=== PATIENT | male | born 1980 | race Caucasian/White ===

== ENCOUNTER → 2019-12-14 13:12 | Outpatient (CLI) | payer OTHER, SELFPAY | PROVIDERS: PCP Family Medicine; Visit Provider Nurse Practitioner | DX: Z20.828 Contact with and (suspected) exposure to other viral communicable diseases (principal) | CPT/HCPCS: U0003 ==

== ENCOUNTER 2021-10-18 17:08 | Emergency (ER) | payer OTHER, SELFPAY ==
[2021-10-18 17:09] VITALS: BP 148/92; PULSE 85; RESP 16; TEMP 36.8; O2SAT 98; BMI 28.1
[2021-10-18 17:20] LABS: Microscopic, Urine URINE MICROSCOPIC (MICROSCOPIC)
[2021-10-18 17:26] LABS: Appearance,Urine CLEAR (Clear); Bilirubin,Urine Negative (Negative); Blood, Urine 1+ (Negative); Color,Urine YELLOW (Yellow); Glucose,Urine (UA) Negative (Negative); Ketones,Urine Negative (Negative); Leukocyte Esterase,Urine Negative (Negative); Nitrate,Urine Negative (Negative); Protein,Urine Negative (Negative); Urobilinogen,Urine 0.2 EU/dl (0.2)
[2021-10-18 17:30] VITALS: BP 127/80; PULSE 83; O2SAT 98
--- NOTE | 2021-10-18 17:41 | CT_ITS ---
PROCEDURE INFORMATION: Exam: CT Abdomen And Pelvis Without Contrast Exam date and time: 10/18/2021 5:48 PM Age: 41 years old Clinical indication: Abdominal pain; Generalized; Additional info: Abd pain, hematuria TECHNIQUE: Imaging protocol: Computed tomography of the abdomen and pelvis without contrast. Radiation optimization: All CT scans at this facility use at least one of these dose optimization techniques: automated exposure control; mA and/or kV adjustment per patient size (includes targeted exams where dose is matched to clinical indication); or iterative reconstruction. COMPARISON: No relevant prior studies available. FINDINGS: Lungs: Calcified granulomas in the right lung base are of no clinical concern. Lung bases are clear. Liver: Normal liver. Gallbladder and bile ducts: Normal gallbladder. Normal biliary system. Pancreas: Normal pancreas. Spleen: The spleen demonstrates punctate calcifications, consistent with remote granulomatous organism exposure. The spleen is otherwise unremarkable. Adrenal glands: Normal adrenal glands. Kidneys and ureters: The kidneys are normal. The ureters are normal. Stomach and bowel: Wall thickening, pericolonic fat stranding, and several inflamed diverticula at the proximal sigmoid. No other segmental bowel wall thickening. Mild colonic diverticulosis. No bowel obstruction. Moderate constipation. Appendix: Prior appendectomy. Intraperitoneal space: Trace reactive free fluid in the rectovesical pouch. No intraperitoneal fluid collections. No free intraperitoneal air. Vasculature: Unremarkable. No abdominal aortic aneurysm. Lymph nodes: No concerning abdominopelvic adenopathy. Urinary bladder: The bladder is normal. Reproductive: Unremarkable as visualized. Bones/joints: No acute skeletal abnormality or aggressive osseous lesion. Soft tissues: Body wall soft tissues are unremarkable. IMPRESSION: Acute uncomplicated sigmoid diverticulitis.
--- NOTE | 2021-10-18 17:41 | HMH.EDABDPAI ---
ED Disposition Clinical Impression: Sigmoid diverticulitis Disposition: Home, Self-Care Condition on Discharge: Good Instructions: Diverticulitis Additional Instructions: follow up PCP, return for worse Prescriptions: metroNIDAZOLE [metroNIDAZOLE 500mg Tablet] 500 mg PO TID #30 tab Transmission Status: Pending to [id number] Cefdinir [Omnicef 300mg Capsule] 300 mg PO BID #20 cap Transmission Status: Pending to [id number] Referrals: Octaviano Martin [Primary Care Provider] - - Critical Care Critical Care Time: No Attestation: On 10/18/21, the high probability of a clinically significant, sudden or life threatening deterioration of the following system(s) required my full and direct attention, intervention and personal management. The time I documented below is in addition to time spent performing reported procedures but includes the following listed in this critical care notation. Medical Decision Making - Medical Records Medical records reviewed: Yes: I reviewed the patient's medical records. - Nura Inquiry Pt receiving controlled substance: No Vital Signs: 10/18/21 17:09 10/18/21 17:30 Temperature 98.2 F Temperature Source Oral Pulse Rate 83 Pulse Rate [Radial] 85 Respiratory Rate 16 Blood Pressure 127/80 Blood Pressure [Right Arm] 148/92 H Blood Pressure Mean 95 Blood Pressure Mean [Right Arm] 110 Blood Pressure Position [Right Arm] Sitting 02 Sat by Pulse Oximetry 98 98 Oxygen Delivery Method Room Air Room Air - Lab Data Lab Results 10/18/21 17:10: Urine Color Yellow, Urine Appearance Clear, Urine pH 6.0, Ur Specific [place] 1.020, Urine Protein Negative, Urine Glucose (UA) Negative, Urine Ketones Negative, Urine Blood 1+, Urine Nitrate Negative, Urine Bilirubin Negative, Urine Urobilinogen 0.2, Ur Leukocyte Esterase Negative, Urine RBC 3-5, Urine WBC None, Ur Squamous Epith Cells Occasional, Urine Bacteria None 10/18/21 17:26: WBC 13.9 H, RBC 5.33, Hgb 15.6, Hct 46.9, MCV 87.9, MCH 29.2, MCHC 33.2, RDW 12.7, Plt Count 311, MPV 8.2, Neut % (Auto) 78.4, Lymph % (Auto) 12.8, [place] % (Auto) 5.3, Eos % (Auto) 1.9, Baso % (Auto) 1.6, Neut # (Auto) 10.9 H, Lymph # (Auto) 1.8, [place] # (Auto) 0.7, Eos # (Auto) 0.3, Baso # (Auto) 0.2 10/18/21 17:26: Sodium 140, Potassium 3.9, Chloride 105, Carbon Dioxide 27, Anion Gap 11.9, BUN 17, Creatinine 0.80, Estimated Creat Clear 161, Estimated GFR 108, Est GFR ( Amer) 130, Glucose 131 H, Calcium 9.4, Total Bilirubin 0.7, AST 33, ALT 34, Alkaline Phosphatase 92, Total Protein 7.9, Albumin 4.5, Globulin 3.4 H, Albumin/Globulin Ratio 1.3 Result diagrams: 10/18/21 17:26 10/18/21 17:26 Abdominal Pain HPI - General Chief Complaint: Abdominal Pain Stated Complaint: stomach Pain Time Seen by Provider: 10/18/21 17:41 Mode of Arrival: Ambulatory Limitations: No Limitations Description of Symptoms (Recalled from ER Triage Doc. by RN): to ed per pvt car with c/o lower abd pain sudden onset yesterday pt denies any nausea, vomiting, diarrhea, fever, chills. states pain worse with ambulation. last po intake food at noon today and water approx 2pm. pt states he took some Ibuprofen yesterday. - History of Present Illness HPI narrative: suprapubic abd pain, subjective fever, started yesterday MD complaint: abdominal pain Onset (ago): day(s) Consistency: constant Location: suprapubic Severity: moderate Radiation: none Relieving factors: nothing Exacerbating factors: nothing Associated symptoms: denies other symptoms - Related Data Previous Rx's Medication Instructions Recorded Cefdinir [Omnicef 300mg Capsule] 300 mg PO BID #20 cap 10/18/21 metroNIDAZOLE [metroNIDAZOLE 500mg 500 mg PO TID #30 tab 10/18/21 Tablet] Allergies Allergy/AdvReac Type Severity Reaction Status Date / Time No Known Allergies Allergy Verified 10/18/21 17:28 [facility] History - Hepatitis A Screen Attestation statement:: Allison
[2021-10-18 17:42] LABS: Basophils # 0.2 K/mm3 (0-0.2); Basophils % 1.6 % (0.1-2.0); Chloride 105 mmol/L (98-107); Eosinophils # 0.3 K/mm3 (0.0-0.4); Eosinophils % 1.9 % (0.1-12.0); Hematocrit 46.9 % (42.0-52.0); Hemoglobin 15.6 g/dL (14.1-18.0); Lymphocytes # 1.8 K/mm3 (0.7-4.5); Lymphocytes % 12.8 % (10-50); Mean Corpuscular HGB Conc 33.2 g/dL (31.8-35.4); Mean Corpuscular Hemoglobin 29.2 pg (27.0-31.2); Mean Corpuscular Volume 87.9 fl (80-94); Mean Platelet Volume 8.2 fl (7.4-10.4); Monocytes # 0.7 K/mm3 (0.1-1.0); Monocytes % 5.3 % (1.7-9.3); Neutrophils # 10.9 K/mm3 (1.8-7.8); Neutrophils % 78.4 % (37.0-80.0); Platelet Count 311 K/mm3 (142-424); Potassium 3.9 mmoL/L (3.5-5.1); Red Blood Count 5.33 M/mm3 (4.60-6.20); Red Cell Distribution Width 12.7 % (11.5-17.5); Sodium 140 mmol/L (136-145); White Blood Count 13.9 K/mm3 (4.8-10.8)
[2021-10-18 17:44] LABS: Alanine Aminotransferase 34 U/L (12-78); Aspartate Amino Transferase 33 U/L (17-59); Blood Urea Nitrogen 17 mg/dl (9-20); Creatinine Clearance Estimated 161 mL/min (50-200); Estimated Glomerular Filt Rate 108 ml/min (>60); GFR (African American) 130 ML/MIN (>60)
[2021-10-18 17:45] LABS: Albumin Level 4.5 g/dl (3.5-5.0); Albumin/Globulin Ratio 1.3 (1.1-1.8); Alkaline Phosphatase 92 U/L (38-126); Anion Gap 11.9 mEq/L (5-15); Bilirubin,Total 0.7 mg/dl (0.2-1.3); Calcium 9.4 mg/dl (8.4-10.2); Carbon Dioxide 27 mmol/L (22.0-30.0); Globulin 3.4 g/dL (1.3-3.2); Glucose 131 mg/dl (74-100); Total Protein,Serum 7.9 g/dl (6.3-8.2)
[2021-10-18 17:51] LABS: Squamous Epithelial Cell,Urine Occasional #/hpf (0-5)
--- NOTE | 2021-10-18 17:56 | PC.NURSE ---
pt returned from ct
--- NOTE | 2021-10-18 17:57 | PC.NURSE ---
pt offered warm blankets pt refused
--- NOTE | 2021-10-18 18:40 | PC.NURSE ---
pt resting at bedside
[2021-10-18 19:18] VITALS: BP 143/77; PULSE 82; RESP 16; TEMP 36.8; O2SAT 98
== END 2021-10-18 19:20 | disposition home or self-care (01) ==
PROVIDERS: Emergency Provider Emergency Medicine; PCP Family Medicine
DX: K57.32 Diverticulitis of large intestine without perforation or abscess without bleeding (principal)
CPT/HCPCS: 74176; 80053; 81001; 85025; 96374; 99284; J0696

== ENCOUNTER 2023-09-24 10:07 | Emergency (ER) | payer OTHER, SELFPAY ==
[2023-09-24 10:35] VITALS: BP 128/85; PULSE 73; RESP 21; TEMP 36.9; O2SAT 97; BMI 28.5
--- NOTE | 2023-09-24 10:57 | ED_ITS ---
Discharge Plan Disposition Patient Disposition: Home, Self-Care Condition: Good Prescriptions Prescriptions: New dicyclomine 10 mg capsule 10 mg PO TID PRN (Reason: abdominal pain/cramping) Qty: 12 0RF ondansetron 4 mg tablet,disintegrating 4 mg PO Q8H PRN (Reason: nausea and vomiting) Qty: 10 0RF Referrals Follow up/Referrals: Provider,Referral, MD [Primary Care Provider] - See instructions Activity Restrictions/Add. Instructions Additional Instructions/Restrictions: Drink extra fluids with and between meals. If you have difficulty drinking, try very small amounts of water or suck on ice chips. ? Avoid fruit juices, as these do not replace minerals and can actually increase diarrhea. ? Children and adults can use sports drinks to replenish electrolytes. Younger children and infants should use products formulated for children, like oral rehydration solutions. ? Eat food in small amounts and let your stomach recover. ? Get lots of rest. You may feel tired or weak. ? No greasy or fried foods for the next 24-48 hours BRAT diet Bananas Rice Apples and [place] ? Make sure to drink plenty of liquids ? Return if needed ? Straight to ER if any life threatening symptoms ? Zofran as prescribed ? Follow up with family doctor in the next 48-72 hours if no improvement or any worsening of symptoms Clinical Impressions Clinical Impression: Viral syndrome Stand Alone Forms Stand Alone Forms: Work/School Release Instructions Patient Instructions: Diarrhea, Ondansetron, Dicyclomine Discharge ED Provider: Patrizia Morales [facility] General Stated complaint: chills, diarrhea Mode of Arrival: Ambulatory Source of Information: Patient Limitations: No Limitations Time Seen by Provider: 09/24/23 10:58 Description of Symptoms (Recalled from Triage Doc. by RN): PATIENT C/O DIARRHEA, CHILLS, AND FEELING HOT THAT STARTED YESTERDAY EVENING HEENT Symptoms (Recalled from RN notes): No Resp Symptoms (Recalled from RN notes): No Skin Symptoms (Recalled from RN notes): No MS Symptoms (Recalled from RN notes): No Functional Status (Recalled from RN notes): WNL History of Present Illness Provider Complaint: Patient state that his recently had vomiting and diarrhea now he thinks he has it state that he hasnt vomited but he has been having diarrhea, cramping and feeling flush at times doesnt think he has had a fever or anything but he wasnt able to go to work today and came in to get a note Related Data Previous Rx's Medication Instructions Recorded dicyclomine 10 mg capsule 10 mg PO TID PRN abdominal 09/24/23 pain/cramping #12 caps ondansetron 4 mg disintegrating 4 mg PO Q8H PRN nausea and 09/24/23 tablet vomiting #10 tabs Allergies Allergy/AdvReac Type Severity Reaction Status Date / Time No Known Allergies Allergy Verified 10/18/21 17:28 Worker's Comp Is this a Worker's Comp case?: No [facility] Disclaimer: The information contained in this section may have been updated after the patient was seen, as this information can be updated by other users. Surgical History (Updated 09/24/23 @ 10:49 by Velma Betancur RN) History of tympanostomy tube placement History of appendectomy Social History Smoking Status: Unknown if ever smoked alcohol intake: never current occupational status: employed Travel in the last 8 weeks: None ROS Obtained: Yes All systems reviewed & no additional complaints except as documented and Yes Systems reviewed as appropriate & no additional complaints except as documented Constitutional Constitutional: Reports system reviewed and no additional complaints, except as documented and Reports as per HPI ENT Ears, Nose, Mouth, and Throat: Reports system reviewed and no additional complaints, except as documented and Reports as per HPI Cardiovascular Cardiovascular: Reports system reviewed and no additional complaints, except as documented and Reports as per HPI Respiratory Respiratory: Reports system reviewed and no additional complaints, except as documented and Reports as per HPI Gastrointestinal Gastrointestingal: Reports system reviewed and no additional complaints, except as documented, as per HPI, cramping, diarrhea and nausea; Denies abdominal pain or vomiting Physical Exam General General appearance: alert and in no apparent distress ENT ENT exam: Present mucous membranes moist Respiratory Respiratory exam: Present normal lung sounds bilaterally; Absent respiratory dis tress or wheezes Cardiovascular Cardiovascular exam: Present regular rate, normal rhythm and normal heart sounds Abdominal Exam Abdominal exam: Present soft and normal bowel sounds; Absent distention or tenderness Neurological Exam Neurological exam: Present alert, oriented X3 and normal gait Medical Decision Making Nura Inquiry Pt receiving controlled substance: No Nura was queried for this patient: No Vital Signs: 09/24/23 10:35 Temperature 98.5 F Temperature Source Oral Pulse Rate [Left Brachial] 73 Respiratory Rate 21 Blood Pressure [Left Arm] 128/85 Blood Pressure Mean [Left Arm] 99 Blood Pressure Source [Left Arm] Automatic Cuff Blood Pressure Position [Left Arm] Sitting 02 Sat by Pulse Oximetry 97 Oxygen Delivery Method Room Air
[2023-09-24 11:06] VITALS: BP 128/85; PULSE 73; RESP 21; TEMP 36.9; O2SAT 97
== END 2023-09-24 11:11 | disposition home or self-care (01) ==
PROVIDERS: Emergency Provider Nurse Practitioner
DX: R11.2 Nausea with vomiting, unspecified (principal); R19.7 Diarrhea, unspecified
CPT/HCPCS: 99204; 99212; G0463